=== PATIENT | male | born 1975 | race Caucasian/White ===

== ENCOUNTER 2019-10-05 11:27 | Day surgery (SDC) | payer OTHER ==
[2019-10-02 12:04] VITALS: BP 163/97
[~2019-10-05] VITALS: Ht 177.8 cm; Wt 79.4 kg
[~2019-10-05 11:27] MED LIST: ADDERALL 30 MG30 MG PO; ALPRAZOLAM2 MG PO; KEFLEX500 M1 PO; MUPIROCIN22 GM; NORCO 5-325 TA1 EAC1 PO
[2019-10-05 12:05] VITALS: BP 142/94
[2019-10-05 17:25] VITALS: BP 142/94
== END 2019-10-05 17:50 | disposition home or self-care (01) ==
LOC: TBA 11:27 → OR 11:27
DX: S64.11XA Injury of median nerve at wrist and hand level of right arm, initial encounter (principal); S56.121A Laceration of flexor muscle, fascia and tendon of right index finger at forearm level, initial encounter; S56.123A Laceration of flexor muscle, fascia and tendon of right middle finger at forearm level, initial encounter; F17.220 Nicotine dependence, chewing tobacco, uncomplicated; Z87.19 Personal history of other diseases of the digestive system; Z98.890 Other specified postprocedural states; Z79.899 Other long term (current) drug therapy; Z88.0 Allergy status to penicillin; X58.XXXA Exposure to other specified factors, initial encounter; Y93.89 Activity, other specified; Y92.89 Other specified places as the place of occurrence of the external cause; Y99.8 Other external cause status
CPT/HCPCS: 50010; 50101; 50386; 56526; 56527; 56531; 56532; 57006; 57091; 57147; 57148; 57178; 62110; 62900; 64043; 65060; 70005